=== PATIENT | male | born 1935 | race Caucasian/White ===

== ENCOUNTER 2022-07-01 12:32 | Outpatient (RCR) | payer MEDICARE, SELFPAY | END 2022-07-09 11:48 | disposition home or self-care (01) | LOC: HO.WCC 12:32 | PROVIDERS: Visit Provider Physician Assistant | DX: E11.621 Type 2 diabetes mellitus with foot ulcer (principal); L97.522 Non-pressure chronic ulcer of other part of left foot with fat layer exposed; I10 Essential (primary) hypertension; G30.9 Alzheimer's disease, unspecified; F02.80 Dementia in other diseases classified elsewhere, unspecified severity, without behavioral disturbance, psychotic disturbance, mood disturbance, and anxiety; Z79.84 Long term (current) use of oral hypoglycemic drugs; Z79.01 Long term (current) use of anticoagulants; Z87.891 Personal history of nicotine dependence | CPT/HCPCS: 11042; 99212 ==